=== PATIENT | male | born 1990 | race Caucasian/White ===

== ENCOUNTER 2017-01-03 09:21 | Inpatient (IN) | payer OTHER ==
[2017-01-03 10:15] VITALS: BMI 25.3
--- NOTE | 2017-01-03 13:48 | HP ---
COWS - Scale Resting Pulse: 0= [place] 80 or Below Sweatin= Chills/Flushing Restless Observation: 0= Sits Still Pupil Size: 2= Moderately Dilated Bone or Joint Aches: 4=Acute Joint/Muscle Pain Runny Nose/ Eye Tearin= Nasal Congestion GI Upset > 30mins: 1= Stomach Cramp Tremor Observation: 2= Slight Tremor Visible Yawning Observation: 1= 1-2x During Session Anxiety or Irritability: 1=Feels Anxious/Irritable Goose Flesh Skin: 0=Smooth Skin COWS Score: 13 Admission ROS S - HPI Chief Complaint: DETOX TX FOR PERCOCETS AND HEROIN DEPENDENCE Allergies/Adverse Reactions: Allergies Allergy/AdvReac Type Severity Reaction Status Date / Time No Known Allergies Allergy Verified 01/03/17 10:38 History of Present Illness: 26 Y/O H/MALE WITH A HX OF OPIOID DEPENDENCE SEEKING DETOX TX. Exam Limitations: No Limitations - Ebola screening Have you traveled outside of the country in the last 21 days: No Have you had contact with anyone from an Ebola affected area: No Have you been sick,other than usual withdrawal symptoms: No Do you have a fever: No - Review of Systems Constitutional: Chills, Loss of Appetite, Night Sweats, Changes in sleep, Unintentional Wgt. Loss EENT: reports: Blurred Vision, Tearing, Nose Congestion, Dental Problems (ROOT CANAL;GINGIVITIS HX) Respiratory: reports: No Symptoms reported Cardiac: reports: Lightheadedness GI: reports: Constipated, Diarrhea, Nausea, Poor Appetite, Vomiting, Abdominal cramping : reports: Dysuria Musculoskeletal: reports: Back Pain, Muscle Pain Integumentary: reports: No Symptoms Reported Neuro: reports: Dizziness Endocrine: reports: No Symptoms Reported Hematology: reports: No Symptoms Reported Psychiatric: reports: Orientated x3, Anxious Other Systems: Reviewed and Negative Patient History - Patient Medical History Hx Anemia: No Hx Asthma: No Hx Chronic Obstructive Pulmonary Disease (COPD): No Hx Cardiac Disorders: No Hx Hypertension: No Hx Hypercholesterolemia: No HX Cerebrovascular Accident: No Hx Seizures: No Hx Diabetes: No Hx Gastrointestinal Disorders: Yes (GASTRITIS HX-N CURRENT MED) Hx Genitourinary Disorders: No Hx Sexually Transmitted Disorders: No Hx Renal Disease (ESRD): No Hx Thyroid Disease: No Hx Human Immunodeficiency Virus (HIV): No (NEGATIVE HX) Hx Hepatitis C: No Hx Depression: No Hx Suicide Attempt: No Hx Bipolar Disorder: No Hx Schizophrenia: No - Patient Surgical History Past Surgical History: No Hx Neurologic Surgery: No Hx Cataract Extraction: No Hx Cardiac Surgery: No Hx Lung Surgery: No Hx Breast Surgery: No Hx Breast Biopsy: No Hx Abdominal Surgery: No Hx Appendectomy: No Hx Cholecystectomy: No Hx Genitourinary Surgery: No Hx Orthopedic Surgery: No Anesthesia Reaction: No - PPD History Previous Implant?: Yes Documented Results: Negative w/o proof Implanted On Prior R Admission?: No PPD to be Administered?: Yes - Reproductive History Patient is a Female of Child Bearing Age (11 -55 yrs old): No (MALE) Patient : (N/A) - Smoking Cessation Smoking history: Current every day smoker Have you smoked in the past 12 months: Yes Aproximately how many cigarettes per day: 20 Hx Chewing Tobacco Use: No Initiated information on smoking cessation: Yes 'Breaking Loose' booklet given: 01/03/17 - Substance & Tx. History Hx Alcohol Use: Yes (ON OCASSIONS) Hx Substance Use: Yes (HEROIN/PERCOCETS) Substance Use Type: Heroin, Opiates Hx Substance Use Treatment: No (FIRST TIME IN DETOX) - Substances Abused Heroin Route: Inhalation Frequency: 3-6 times per week Amount used: 2 bags Age of first use: 24 Date of Last Use: 01/02/17 Marijuana/Hashish Route: Smoking Frequency: Daily Amount used: 3.5grams Age of first use: 16 Date of Last Use: 01/02/17 percocets Route: Oral Frequency: Daily Amount used: 4-5 (10mg) Age of first use: 21 Date of Last Use: 01/02/17 Family Disease History - Family Disease History Family Disease History: Other: Mother (HTN) Admission Physical Exam BHS - Vital Signs Vital Signs: Vital Signs - 24 hr 01/03/17 10:11 Temperature 96.9 F L Pulse Rate 77 Respiratory 20 Rate Blood Pressure 112/72 - Physical General Appearance: Yes: Moderate Distress, Alcohol on Breath, Anxious HEENTM: Yes: EOMI, Normocephalic, UMER, Pharynx Normal Respiratory: Yes: Chest Non-Tender, Lungs Clear, Normal Breath Sounds, No Respiratory Distress Neck: Yes: No masses,lesions,Nodules, Supple, Trachea in good position Breast: Yes: Breast Exam Deferred Cardiology: Yes: Regular Rhythm, Regular Rate, S1, S2 Abdominal: Yes: Normal Bowel Sounds, Non Tender, Flat, Soft Genitourinary: Yes: Other (N/C) Back: Yes: Within Normal Limits Musculoskeletal: Yes: full range of Motion, Gait Steady Extremities: Yes: Normal Range of Motion, Non-Tender Neurological: Yes: recreation coordinator II-XII NML intact, Fully Oriented, Alert, Motor Strength 5/5 Integumentary: Yes: Dry, Warm, Other (BRUISE ON LEFT ANKLE) Lymphatic: Yes: Within Normal Limits - Diagnostic (1) Opioid dependence with withdrawal Current Visit: Yes Status: Acute (2) Cocaine dependence, uncomplicated Current Visit: Yes Status: Acute (3) Cannabis dependence, uncomplicated Current Visit: Yes Status: Acute Cleared for Admission [facility] - Detox or Rehab [facility] Level of Care: Medically Managed Detox Regimen/Protocol: Methadone [facility] Breath Alcohol Content Breath Alcohol Content: 0 Urine Drug Screen - Results Drug Screen Negative: No Urine Drug Screen Results: THC-Marijuana, SAMIRA-Cocaine, OPI-Opiates, OXY- Oxycodone
[2017-01-03] MEDS ORDERED: guaiFENesin/D-METHORPHAN HB 10 ML UNIT-DOSE CUPS PO PRN (14:03)
[2017-01-03] MEDS ORDERED: MAGNESIUM HYDROX 2400MG/30ML ORAL SUSPENSION 30 ML CUP PO PRN (14:03)
[2017-01-03] MEDS ORDERED: MENTHOL/PHENOL 1 EACH UD MM PRN (14:03)
[2017-01-03] MEDS ORDERED: LOPERAMIDE HCL 2 MG CAPSULE PO PRN (14:03)
[2017-01-03] MEDS ORDERED: MAG HYDROX/AL HYDROX/SIMETH 30 ML UNIT-DOSE CUP PO PRN (14:03)
[2017-01-03] MEDS ORDERED: ACETAMINOPHEN 325 MG TABLET (FP) PO PRN (14:03)
[2017-01-03] MEDS ORDERED: P-EPHED 60MG/TRIPROLIDI 2.5MG TABLET PO PRN (14:03)
[2017-01-03] MEDS ORDERED: MAGNESIUM CITRATE 300 ML BOTTLE PO PRN (14:03)
[2017-01-03] MEDS: diazePAM 5 MG TABLET PO PRN ×2 (14:29→22:49)
[2017-01-03] MEDS ORDERED: METHADONE HCL 10 MG TABLET (FOR DETOX USE ONLY) PO ONE ×2 (15:00→23:00)
[2017-01-03] MEDS: NICOTINE 21 MG/24 HOURS TOPICAL PATCH TD SCH (16:01)
[2017-01-03 16:07] LABS: MCH 32.8 pg (25.7-33.7); MCHC 34.2 g/dl (32.0-35.9); MEAN CELL VOLUME 95.9 fl (80-96); MEAN PLT VOLUME 8.9 fl (7.5-11.1); PLATELET COUNT 212 K/MM3 (134-434)
[2017-01-03 16:36] LABS: ALBUMIN 3.6 g/dl (3.4-5.0); ANION GAP 7 (8-16); BILIRUBIN,TOTAL 0.7 mg/dL (0.2-1.0); CALCIUM 8.3 mg/dL (8.5-10.1); CO2 28 mmol/L (21-32); CREATININE 0.8 mg/dL (0.7-1.3); GLUCOSE,RANDOM 78 mg/dL (74-106); SGOT/AST 11 U/L (15-37); SGPT/ALT 18 U/L (12-78); TOT PROT 6.6 g/dl (6.4-8.2)
[2017-01-03 16:37] LABS: ALK PHOS 65 U/L (45-117)
[2017-01-03 17:12] LABS: SICKLE CELL SCREEN NEGATIVE (NEGATIVE)
[2017-01-03] MEDS: THIAMINE HCL 100 MG TABLET (FP) PO SCH (22:48)
[2017-01-04 00:28] LABS: URINE APPEARANCE CLEAR; URINE BILIRUBIN NEGATIVE (NEGATIVE); URINE BLOOD NEGATIVE (NEGATIVE); URINE COLOR YELLOW; URINE GLUCOSE (UA) NEGATIVE (NEGATIVE); URINE KETONE NEGATIVE (NEGATIVE); URINE LEUK ESTERASE TRACE (NEGATIVE); URINE NITRITE NEGATIVE (NEGATIVE); URINE PROTEIN NEGATIVE (NEGATIVE); URINE UROBILINOGEN NEGATIVE mg/dL (0.2-1.0)
[2017-01-04 00:58] LABS: URINE HYALINE CAST 1 /lpf; URINE MUCUS RARE; URINE RBC 1 /hpf (0-3); URINE WBC 2 /hpf (3-5)
[2017-01-04 02:02] LABS: HIV 1 & 2 AB NEGATIVE; HIV 1 AGp24 NEGATIVE
[2017-01-04] MEDS: diazePAM 5 MG TABLET PO PRN ×5 (05:30→22:45)
--- NOTE | 2017-01-04 09:25 | EKG ---
Test Reason : Blood Pressure : / mmHG Vent. Rate : 062 BPM Atrial Rate : 062 BPM P-R Int : 124 ms QRS Dur : 082 ms QT Int : 438 ms P-R-T Axes : 047 044 052 degrees QTc Int : 444 ms NORMAL SINUS RHYTHM WITH SINUS ARRHYTHMIA NORMAL ECG NO PREVIOUS ECGS AVAILABLE Confirmed by ZEINA JUARES MD ([id number]) on 01/04/2017 9:24:28 AM Referred By: Ziyad Perdomo Confirmed By:ZEINA JUARES MD
[2017-01-04] MEDS ORDERED: METHADONE HCL 10 MG TABLET (FOR DETOX USE ONLY) PO ONE (10:00)
[2017-01-04] MEDS: PRENATAL VITAMINS W/ FOLIC ACID TABLET (FP) PO SCH (10:29)
[2017-01-04] MEDS: NICOTINE 21 MG/24 HOURS TOPICAL PATCH TD SCH (10:30)
--- NOTE | 2017-01-04 12:02 | PN ---
S COWS - Scale Resting Pulse: 0= [place] 80 or Below Sweatin= Chills/Flushing Restless Observation: 3= Extraneous Movement Pupil Size: 2= Moderately Dilated Bone or Joint Aches: 4=Acute Joint/Muscle Pain Runny Nose/ Eye Tearin= Nasal Congestion GI Upset > 30mins: 1= Stomach Cramp Tremor Observation of Outstretched Hands: 1= Tremor Atco, Not Seen Yawning Observation: 1= 1-2x During Session Anxiety or Irritability: 2=Irritable/Anxious Goose Flesh Skin: 0=Smooth Skin COWS Score: 16 S Progress Note (SOAP) Subjective: ANXIETY,SWEATS, CHILLS, FATIGUE. Objective: 01/04/17 12:01 Vital Signs Temperature 97.2 F L 01/04/17 10:06 Pulse Rate 66 01/04/17 10:06 Respiratory Rate 18 01/04/17 10:06 Blood Pressure 109/69 01/04/17 10:06 O2 Sat by Pulse Oximetry (%) Laboratory Last Values WBC 9.0 K/mm3 (4.0-10.0) 01/03/17 13:00 RBC 4.51 M/mm3 (4.00-5.60) 01/03/17 13:00 Hgb 14.8 GM/dL (11.7-16.9) 01/03/17 13:00 Hct 43.2 % (35.4-49) 01/03/17 13:00 MCV 95.9 fl (80-96) 01/03/17 13:00 MCH 32.8 pg (25.7-33.7) 01/03/17 13:00 MCHC 34.2 g/dl (32.0-35.9) 01/03/17 13:00 RDW 14.0 % (11.9-15.9) 01/03/17 13:00 Plt Count 212 K/MM3 (134-434) 01/03/17 13:00 MPV 8.9 fl (7.5-11.1) 01/03/17 13:00 Sickle Cell Screen Negative (NEGATIVE) 01/03/17 13:00 Sodium 139 mmol/L (136-145) 01/03/17 13:00 Potassium 4.1 mmol/L (3.5-5.1) 01/03/17 13:00 Chloride 104 mmol/L (98-107) 01/03/17 13:00 Carbon Dioxide 28 mmol/L (21-32) 01/03/17 13:00 Anion Gap 7 (8-16) L 01/03/17 13:00 BUN 13 mg/dL (7-18) 01/03/17 13:00 Creatinine 0.8 mg/dL (0.7-1.3) 01/03/17 13:00 Creat Clearance w eGFR > 60 (>60) 01/03/17 13:00 Random Glucose 78 mg/dL (74-106) 01/03/17 13:00 Calcium 8.3 mg/dL (8.5-10.1) L 01/03/17 13:00 Total Bilirubin 0.7 mg/dL (0.2-1.0) 01/03/17 13:00 AST 11 U/L (15-37) L 01/03/17 13:00 ALT 18 U/L (12-78) 01/03/17 13:00 Alkaline Phosphatase 65 U/L (45-117) 01/03/17 13:00 Total Protein 6.6 g/dl (6.4-8.2) 01/03/17 13:00 Albumin 3.6 g/dl (3.4-5.0) 01/03/17 13:00 Urine Color Yellow 01/03/17 14:56 Urine Appearance Clear 01/03/17 14:56 Urine pH 6.0 (5.0-8.0) 01/03/17 14:56 Ur Specific [place] 1.025 (1.005-1.025) 01/03/17 14:56 Urine Protein Negative (NEGATIVE) 01/03/17 14:56 Urine Glucose (UA) Negative (NEGATIVE) 01/03/17 14:56 Urine Ketones Negative (NEGATIVE) 01/03/17 14:56 Urine Blood Negative (NEGATIVE) 01/03/17 14:56 Urine Nitrite Negative (NEGATIVE) 01/03/17 14:56 Urine Bilirubin Negative (NEGATIVE) 01/03/17 14:56 Urine Urobilinogen Negative mg/dL (0.2-1.0) 01/03/17 14:56 Ur Leukocyte Esterase Trace (NEGATIVE) 01/03/17 14:56 Urine RBC 1 /hpf (0-3) 01/03/17 14:56 Urine WBC 2 /hpf (3-5) 01/03/17 14:56 Ur Epithelial Cells Rare /hpf (FEW) 01/03/17 14:56 Hyaline Casts 1 /lpf 01/03/17 14:56 Urine Mucus Rare 01/03/17 14:56 RPR Titer Nonreactive (NONREACTIVE) 01/03/17 13:00 HIV 1&2 Antibody Screen Negative 01/03/17 11:00 HIV P24 Antigen Negative 01/03/17 11:00 LABS NOTED Assessment: 01/04/17 12:01 WITHDRAWAL SX Plan: CONTINUE DETOX INCREASE PO FLUIDS
[2017-01-04 14:33] LABS: URINE APPEARANCE CLEAR; URINE BILIRUBIN NEGATIVE (NEGATIVE); URINE BLOOD TRACE-INTA (NEGATIVE); URINE COLOR LT. YELLOW; URINE GLUCOSE (UA) NEGATIVE (NEGATIVE); URINE KETONE NEGATIVE (NEGATIVE); URINE LEUK ESTERASE NEGATIVE (NEGATIVE); URINE NITRITE NEGATIVE (NEGATIVE); URINE PROTEIN NEGATIVE (NEGATIVE); URINE UROBILINOGEN 0.2 mg/dL (0.2-1.0)
[2017-01-04] MEDS: NICOTINE POLACRILEX 4 MG GUM BC PRN (16:45)
[2017-01-04] MEDS: THIAMINE HCL 100 MG TABLET (FP) PO SCH (22:45)
[2017-01-04] MEDS: diphenhydrAMINE HCL 50 MG CAPSULE PO PRN (22:45)
[2017-01-05] MEDS: diazePAM 5 MG TABLET PO PRN ×5 (03:28→19:45)
[2017-01-05] MEDS ORDERED: METHADONE HCL 5 MG TABLET (FOR DETOX USE ONLY) PO ONE (10:00)
[2017-01-05] MEDS: PRENATAL VITAMINS W/ FOLIC ACID TABLET (FP) PO SCH (10:19)
[2017-01-05] MEDS: NICOTINE 21 MG/24 HOURS TOPICAL PATCH TD SCH (10:20)
--- NOTE | 2017-01-05 21:02 | PN ---
S CIWA - CIWA Score Nausea/Vomitin Muscle Tremors: 4-Moderate,w/Arms Extend Anxiety: 3 Agitation: 0-Normal Activity Paroxysmal Sweats: 3 Orientation: 2-Disoriented Date<2 days Tacttile Disturbances: 0-None Auditory Disturbances: 0-None Visual Disturbances: 3-Moderate Sensitivity Headache: 0-None Present CIWA-Ar Total Score: 18 BHS Progress Note (SOAP) Subjective: Nausea, Tremors, Sweating, Constipation, Interrupted Sleep, Body Aches. Objective: PT. A & O X 2 (DISORIENTED ABOUT DAY / DATE). PT. OBSERVED AMBULATING ON UNIT. NO ACUTE DISTRESS. 01/05/17 20:59 Vital Signs Temperature 97.7 F 01/05/17 17:53 Pulse Rate 91 H 01/05/17 17:53 Respiratory Rate 18 01/05/17 17:53 Blood Pressure 108/66 01/05/17 17:53 O2 Sat by Pulse Oximetry (%) Laboratory Tests 01/03/17 01/03/17 01/03/17 11:00 13:00 13:00 WBC 9.0 RBC 4.51 Hgb 14.8 Hct 43.2 MCV 95.9 MCH 32.8 MCHC 34.2 RDW 14.0 Plt Count 212 MPV 8.9 Sickle Cell Screen Negative Sodium 139 Potassium 4.1 Chloride 104 Carbon Dioxide 28 Anion Gap 7 L BUN 13 Creatinine 0.8 Creat Clearance w eGFR > 60 Random Glucose 78 Calcium 8.3 L Total Bilirubin 0.7 AST 11 L ALT 18 Alkaline Phosphatase 65 Total Protein 6.6 Albumin 3.6 Urine Color Urine Appearance Urine pH Ur Specific [place] Urine Protein Urine Glucose (UA) Urine Ketones Urine Blood Urine Nitrite Urine Bilirubin Urine Urobilinogen Ur Leukocyte Esterase Urine RBC Urine WBC Ur Epithelial Cells Hyaline Casts Urine Mucus RPR Titer HIV 1&2 Antibody Screen Negative HIV P24 Antigen Negative 01/03/17 01/03/17 01/04/17 13:00 14:56 13:25 WBC RBC Hgb Hct MCV MCH MCHC RDW Plt Count MPV Sickle Cell Screen Sodium Potassium Chloride Carbon Dioxide Anion Gap BUN Creatinine Creat Clearance w eGFR Random Glucose Calcium Total Bilirubin AST ALT Alkaline Phosphatase Total Protein Albumin Urine Color Yellow Lt. yellow Urine Appearance Clear Clear Urine pH 6.0 6.0 Ur Specific [place] 1.025 1.020 Urine Protein Negative Negative Urine Glucose (UA) Negative Negative Urine Ketones Negative Negative Urine Blood Negative Trace-inta Urine Nitrite Negative Negative Urine Bilirubin Negative Negative Urine Urobilinogen Negative 0.2 Ur Leukocyte Esterase Trace Negative Urine RBC 1 Urine WBC 2 Ur Epithelial Cells Rare Hyaline Casts 1 Urine Mucus Rare RPR Titer Nonreactive HIV 1&2 Antibody Screen HIV P24 Antigen LABS NOTED. Assessment: 01/05/17 21:00 WITHDRAWAL SYMPTOMS. Plan: CONTINUE DETOX.
[2017-01-05] MEDS: diphenhydrAMINE HCL 50 MG CAPSULE PO PRN (22:41)
[2017-01-05] MEDS: THIAMINE HCL 100 MG TABLET (FP) PO SCH (22:41)
[2017-01-05] MEDS: IBUPROFEN 400 MG TABLET (FP) PO PRN (22:43)
[2017-01-05] MEDS: CYCLOBENZAPRINE HCL 10 MG TABLET (FP) PO PRN (23:02)
[2017-01-06] MEDS: diazePAM 5 MG TABLET PO PRN ×3 (00:08→10:32)
[2017-01-06] MEDS: CYCLOBENZAPRINE HCL 10 MG TABLET (FP) PO PRN ×3 (06:01→22:13)
[2017-01-06] MEDS ORDERED: METHADONE HCL 5 MG TABLET (FOR DETOX USE ONLY) PO ONE (10:00)
[2017-01-06] MEDS: PRENATAL VITAMINS W/ FOLIC ACID TABLET (FP) PO SCH (10:30)
[2017-01-06] MEDS: NICOTINE 21 MG/24 HOURS TOPICAL PATCH TD SCH (10:31)
--- NOTE | 2017-01-06 16:51 | PN ---
BHS Progress Note (SOAP) Subjective: Interrupted sleep, Fatigue, Body Aches. Objective: PT. A & O X 3, OBSERVED AMBULATING ON UNIT. NO ACUTE DISTRESS. 01/06/17 16:50 Vital Signs Temperature 97.7 F 01/06/17 14:54 Pulse Rate 80 01/06/17 14:54 Respiratory Rate 20 01/06/17 14:54 Blood Pressure 94/64 01/06/17 14:54 O2 Sat by Pulse Oximetry (%) Laboratory Tests 01/03/17 01/03/17 01/03/17 11:00 13:00 13:00 WBC 9.0 RBC 4.51 Hgb 14.8 Hct 43.2 MCV 95.9 MCH 32.8 MCHC 34.2 RDW 14.0 Plt Count 212 MPV 8.9 Sickle Cell Screen Negative Sodium 139 Potassium 4.1 Chloride 104 Carbon Dioxide 28 Anion Gap 7 L BUN 13 Creatinine 0.8 Creat Clearance w eGFR > 60 Random Glucose 78 Calcium 8.3 L Total Bilirubin 0.7 AST 11 L ALT 18 Alkaline Phosphatase 65 Total Protein 6.6 Albumin 3.6 Urine Color Urine Appearance Urine pH Ur Specific [place] Urine Protein Urine Glucose (UA) Urine Ketones Urine Blood Urine Nitrite Urine Bilirubin Urine Urobilinogen Ur Leukocyte Esterase Urine RBC Urine WBC Ur Epithelial Cells Hyaline Casts Urine Mucus RPR Titer HIV 1&2 Antibody Screen Negative HIV P24 Antigen Negative 01/03/17 01/03/17 01/04/17 13:00 14:56 13:25 WBC RBC Hgb Hct MCV MCH MCHC RDW Plt Count MPV Sickle Cell Screen Sodium Potassium Chloride Carbon Dioxide Anion Gap BUN Creatinine Creat Clearance w eGFR Random Glucose Calcium Total Bilirubin AST ALT Alkaline Phosphatase Total Protein Albumin Urine Color Yellow Lt. yellow Urine Appearance Clear Clear Urine pH 6.0 6.0 Ur Specific [place] 1.025 1.020 Urine Protein Negative Negative Urine Glucose (UA) Negative Negative Urine Ketones Negative Negative Urine Blood Negative Trace-inta Urine Nitrite Negative Negative Urine Bilirubin Negative Negative Urine Urobilinogen Negative 0.2 Ur Leukocyte Esterase Trace Negative Urine RBC 1 Urine WBC 2 Ur Epithelial Cells Rare Hyaline Casts 1 Urine Mucus Rare RPR Titer Nonreactive HIV 1&2 Antibody Screen HIV P24 Antigen labs noted. Assessment: 01/06/17 16:50 WITHDRAWAL SYMPTOMS. Plan: CONTINUE DETOX. INCREASE PO FLUID INTAKE.
[2017-01-06] MEDS: THIAMINE HCL 100 MG TABLET (FP) PO SCH (22:13)
[2017-01-06] MEDS: diphenhydrAMINE HCL 50 MG CAPSULE PO PRN (22:13)
[2017-01-07] MEDS: hydrOXYzine PAMOATE 50 MG CAPSULE (FP) PO PRN ×4 (00:46→22:32)
[2017-01-07] MEDS: CYCLOBENZAPRINE HCL 10 MG TABLET (FP) PO PRN ×3 (05:54→22:33)
[2017-01-07] MEDS ORDERED: METHADONE HCL 10 MG TABLET (FOR DETOX USE ONLY) PO ONE (10:00)
[2017-01-07] MEDS: NICOTINE 21 MG/24 HOURS TOPICAL PATCH TD SCH (10:18)
[2017-01-07] MEDS: PRENATAL VITAMINS W/ FOLIC ACID TABLET (FP) PO SCH (10:18)
[2017-01-07] MEDS: IBUPROFEN 400 MG TABLET (FP) PO PRN (17:03)
--- NOTE | 2017-01-07 17:26 | PN ---
BHS Progress Note (SOAP) Subjective: Interrupted sleep, Fatigue, Body Aches. Objective: PT. A & O X 3, OBSERVED AMBULATING ON UNIT. NO ACUTE DISTRESS. 01/07/17 17:25 Vital Signs Temperature 97.6 F 01/07/17 09:04 Pulse Rate 70 01/07/17 13:20 Respiratory Rate 18 01/07/17 13:20 Blood Pressure 114/77 01/07/17 13:20 O2 Sat by Pulse Oximetry (%) Laboratory Tests 01/03/17 01/03/17 01/03/17 11:00 13:00 13:00 WBC 9.0 RBC 4.51 Hgb 14.8 Hct 43.2 MCV 95.9 MCH 32.8 MCHC 34.2 RDW 14.0 Plt Count 212 MPV 8.9 Sickle Cell Screen Negative Sodium 139 Potassium 4.1 Chloride 104 Carbon Dioxide 28 Anion Gap 7 L BUN 13 Creatinine 0.8 Creat Clearance w eGFR > 60 Random Glucose 78 Calcium 8.3 L Total Bilirubin 0.7 AST 11 L ALT 18 Alkaline Phosphatase 65 Total Protein 6.6 Albumin 3.6 Urine Color Urine Appearance Urine pH Ur Specific [place] Urine Protein Urine Glucose (UA) Urine Ketones Urine Blood Urine Nitrite Urine Bilirubin Urine Urobilinogen Ur Leukocyte Esterase Urine RBC Urine WBC Ur Epithelial Cells Hyaline Casts Urine Mucus RPR Titer HIV 1&2 Antibody Screen Negative HIV P24 Antigen Negative 01/03/17 01/03/17 01/04/17 13:00 14:56 13:25 WBC RBC Hgb Hct MCV MCH MCHC RDW Plt Count MPV Sickle Cell Screen Sodium Potassium Chloride Carbon Dioxide Anion Gap BUN Creatinine Creat Clearance w eGFR Random Glucose Calcium Total Bilirubin AST ALT Alkaline Phosphatase Total Protein Albumin Urine Color Yellow Lt. yellow Urine Appearance Clear Clear Urine pH 6.0 6.0 Ur Specific [place] 1.025 1.020 Urine Protein Negative Negative Urine Glucose (UA) Negative Negative Urine Ketones Negative Negative Urine Blood Negative Trace-inta Urine Nitrite Negative Negative Urine Bilirubin Negative Negative Urine Urobilinogen Negative 0.2 Ur Leukocyte Esterase Trace Negative Urine RBC 1 Urine WBC 2 Ur Epithelial Cells Rare Hyaline Casts 1 Urine Mucus Rare RPR Titer Nonreactive HIV 1&2 Antibody Screen HIV P24 Antigen LABS NOTED. Assessment: 01/07/17 17:25 WITHDRAWAL SYMPTOMS. Plan: CONTINUE DETOX. INCREASE PO FLUID INTAKE.
[2017-01-07] MEDS: NICOTINE POLACRILEX 4 MG GUM BC PRN (17:57)
[2017-01-07] MEDS: THIAMINE HCL 100 MG TABLET (FP) PO SCH (22:32)
[2017-01-08] MEDS: CYCLOBENZAPRINE HCL 10 MG TABLET (FP) PO PRN (05:28)
[2017-01-08] MEDS: hydrOXYzine PAMOATE 50 MG CAPSULE (FP) PO PRN (05:30)
[2017-01-08] MEDS ORDERED: METHADONE HCL 5 MG TABLET (FOR DETOX USE ONLY) PO ONE (06:00)
[2017-01-08 06:39] VITALS: BP 101/68; PULSE 71; TEMP 97.3
--- NOTE | 2017-01-08 11:05 | DS ---
[facility] Detox Discharge Summary Admission Date: 01/03/17 Discharge Date: 01/08/17 - History Present History: Cannabis Dependence, Cocaine Dependence, Opioid Dependence Additional Comments: PATIENT GOING TO [facility] ([place] [facility] FOR AFTERCARE. PATIENT WAS DISCHARGED FROM DETOX UNIT IN STABLE MEDICAL CONDITION. Pertinent Past History: History of Gastritis. - Physical Exam Results Vital Signs: Vital Signs Temperature 97.3 F L 01/08/17 06:38 Pulse Rate 71 01/08/17 06:38 Respiratory Rate 16 01/08/17 06:38 Blood Pressure 101/68 01/08/17 06:38 O2 Sat by Pulse Oximetry (%) Pertinent Admission Physical Exam Findings: WITHDRAWAL SYMPTOMS. Laboratory Tests 01/03/17 01/03/17 01/03/17 11:00 13:00 13:00 WBC 9.0 RBC 4.51 Hgb 14.8 Hct 43.2 MCV 95.9 MCH 32.8 MCHC 34.2 RDW 14.0 Plt Count 212 MPV 8.9 Sickle Cell Screen Negative Sodium 139 Potassium 4.1 Chloride 104 Carbon Dioxide 28 Anion Gap 7 L BUN 13 Creatinine 0.8 Creat Clearance w eGFR > 60 Random Glucose 78 Calcium 8.3 L Total Bilirubin 0.7 AST 11 L ALT 18 Alkaline Phosphatase 65 Total Protein 6.6 Albumin 3.6 Urine Color Urine Appearance Urine pH Ur Specific [place] Urine Protein Urine Glucose (UA) Urine Ketones Urine Blood Urine Nitrite Urine Bilirubin Urine Urobilinogen Ur Leukocyte Esterase Urine RBC Urine WBC Ur Epithelial Cells Hyaline Casts Urine Mucus RPR Titer HIV 1&2 Antibody Screen Negative HIV P24 Antigen Negative 01/03/17 01/03/17 01/04/17 13:00 14:56 13:25 WBC RBC Hgb Hct MCV MCH MCHC RDW Plt Count MPV Sickle Cell Screen Sodium Potassium Chloride Carbon Dioxide Anion Gap BUN Creatinine Creat Clearance w eGFR Random Glucose Calcium Total Bilirubin AST ALT Alkaline Phosphatase Total Protein Albumin Urine Color Yellow Lt. yellow Urine Appearance Clear Clear Urine pH 6.0 6.0 Ur Specific [place] 1.025 1.020 Urine Protein Negative Negative Urine Glucose (UA) Negative Negative Urine Ketones Negative Negative Urine Blood Negative Trace-inta Urine Nitrite Negative Negative Urine Bilirubin Negative Negative Urine Urobilinogen Negative 0.2 Ur Leukocyte Esterase Trace Negative Urine RBC 1 Urine WBC 2 Ur Epithelial Cells Rare Hyaline Casts 1 Urine Mucus Rare RPR Titer Nonreactive HIV 1&2 Antibody Screen HIV P24 Antigen LABS NOTED. - Treatment Hospital Course: Detox Protocol Followed, Detoxed Safely, Responded well, Discharged Condition Good, Rehab Referral Accepted Patient has Accepted a Rehab Referral to: [facility] ([place], [place] - Medication Discharge Medications: Ambulatory Orders NK [No Known Home Medication] 01/03/17 - Diagnosis (1) Cannabis dependence, uncomplicated Current Visit: Yes Status: Acute (2) Cocaine dependence, uncomplicated Current Visit: Yes Status: Acute (3) Opioid dependence with withdrawal Current Visit: Yes Status: Acute - AMA Did Patient Leave Against Medical Advice: No
== END 2017-01-08 08:55 | disposition home or self-care (01) | DRG 897 ==
LOC: YASAS 09:21 → Y3N 11:46
PROVIDERS: ADMIT Internal Medicine Addiction Medicine; ATTEND Internal Medicine Addiction Medicine
PROC: HZ2ZZZZ Detoxification Services for Substance Abuse Treatment (ICD-10-PCS; principal; 2017-01-03)
DX: F11.23 Opioid dependence with withdrawal (principal); F14.20 Cocaine dependence, uncomplicated; F12.20 Cannabis dependence, uncomplicated; F17.210 Nicotine dependence, cigarettes, uncomplicated
CPT/HCPCS: 36415; 80053; 81003; 81015; 85027; 85660; 86593; 87389; 93005; 93010

== ENCOUNTER 2017-05-01 15:03 | Inpatient (IN) | payer OTHER ==
[2017-05-01 15:33] VITALS: BMI 24.1
--- NOTE | 2017-05-01 17:54 | HP ---
COWS - Scale Resting Pulse: 2= NM 101-120 Sweatin= Chills/Flushing Restless Observation: 3= Extraneous Movement Pupil Size: 0= Normal to Room Light Bone or Joint Aches: 1= Mild Discomfort Runny Nose/ Eye Tearin= Nasal Congestion GI Upset > 30mins: 3= Vomiting/Diarrhea Tremor Observation: 2= Slight Tremor Visible Yawning Observation: 0= None Anxiety or Irritability: 2=Irritable/Anxious Goose Flesh Skin: 0=Smooth Skin COWS Score: 15 Admission ROS S - [facility] Chief Complaint: WITHDRAWAL SX Allergies/Adverse Reactions: Allergies Allergy/AdvReac Type Severity Reaction Status Date / Time No Known Allergies Allergy Verified 01/03/17 10:38 History of Present Illness: 26 YEARS OLD MALE WITH LONG HISTORY OF HEROIN NICOTINE DEPENDENCE HAS DEPRESSION IS ADMITTED TO DETOX Exam Limitations: No Limitations - Ebola screening Have you traveled outside of the country in the last 21 days: No (N) Have you had contact with anyone from an Ebola affected area: No Have you been sick,other than usual withdrawal symptoms: No Do you have a fever: No - Review of Systems Constitutional: Loss of Appetite, Changes in sleep, Unintentional Wgt. Loss, Unexplained wgt Loss EENT: reports: No Symptoms Reported Respiratory: reports: No Symptoms reported Cardiac: reports: No Symptoms Reported GI: reports: Nausea, Poor Appetite, Poor Fluid Intake, Vomiting, Indigestion, Abdominal cramping : reports: No Symptoms Reported Musculoskeletal: reports: Back Pain Integumentary: reports: No Symptoms Reported Neuro: reports: Tremors Endocrine: reports: No Symptoms Reported Hematology: reports: No Symptoms Reported Psychiatric: reports: Judgement Intact, Orientated x3, Depressed Other Systems: Reviewed and Negative Patient History - Patient Medical History Hx Anemia: No Hx Asthma: No Hx Chronic Obstructive Pulmonary Disease (COPD): No Hx Cancer: No Hx Cardiac Disorders: No Hx Congestive Heart Failure: No Hx Hypertension: No Hx Hypercholesterolemia: No Hx Pacemaker: No HX Cerebrovascular Accident: No Hx Seizures: No Hx Dementia: No Hx Diabetes: No Hx Gastrointestinal Disorders: Yes (GASTRITIS HX-N CURRENT MED) Hx Liver Disease: No Hx Genitourinary Disorders: No Hx Sexually Transmitted Disorders: No Hx Renal Disease (ESRD): No Hx Thyroid Disease: No Hx Human Immunodeficiency Virus (HIV): No (NEGATIVE HX) Hx Hepatitis C: No Hx Depression: Yes Hx Suicide Attempt: No Hx Bipolar Disorder: No Hx Schizophrenia: No - Patient Surgical History Past Surgical History: No Hx Neurologic Surgery: No Hx Cataract Extraction: No Hx Cardiac Surgery: No Hx Lung Surgery: No Hx Breast Surgery: No Hx Breast Biopsy: No Hx Abdominal Surgery: No Hx Appendectomy: No Hx Cholecystectomy: No Hx Genitourinary Surgery: No Hx Orthopedic Surgery: No - PPD History Previous Implant?: Yes Documented Results: Negative w/proof Implanted On Prior [facility] Admission?: Yes Date: 01/05/17 PPD to be Administered?: No - Smoking Cessation Smoking history: Current every day smoker Have you smoked in the past 12 months: Yes Aproximately how many cigarettes per day: 15 Cigars Per Day: 0 Hx Chewing Tobacco Use: No Initiated information on smoking cessation: Yes 'Breaking Loose' booklet given: 05/01/17 - Substance & Tx. History Hx Alcohol Use: No Hx Substance Use: Yes Substance Use Type: Cocaine, Marijuana, Opiates Hx Substance Use Treatment: Yes (01/2017 [facility] - Substances Abused Heroin Route: Inhalation Frequency: Daily Amount used: 20 BAGS Age of first use: 23 Date of Last Use: 04/30/17 Cocaine Route: Smoking Frequency: 1-2 times per week Amount used: G Age of first use: 17 Date of Last Use: 04/28/17 Marijuana/Hashish Route: Smoking Frequency: Daily Amount used: 8OZ Age of first use: 15 Date of Last Use: 04/30/17 Family Disease History - Family Disease History Family Disease History: Heart Disease: Mother, Other: Brother, Sister (NO SISTER ) Admission Physical Exam [facility] - Vital Signs Vital Signs: Vital Signs - 24 hr 05/01/17 15:32 Temperature 98.3 F Pulse Rate 102 H Respiratory 18 Rate Blood Pressure 124/83 - Physical General Appearance: Yes: Appropriately Dressed, Mild Distress, Thin, Tremorous, Irritable, Sweating, Anxious HEENTM: Yes: Hearing grossly Normal, Normal ENT Inspection, Normocephalic, Normal Voice Respiratory: Yes: Chest Non-Tender, Lungs Clear, Normal Breath Sounds, No Respiratory Distress, No Accessory Muscle Use Neck: Yes: Supple, Trachea in good position Breast: Yes: Breasts Symetrical Cardiology: Yes: Regular Rhythm, S1, S2, Tachycardia Abdominal: Yes: Non Tender, Soft, Increased Bowel Sounds Genitourinary: Yes: Within Normal Limits Back: Yes: Normal Inspection Musculoskeletal: Yes: full range of Motion, Gait Steady, Back pain, Muscle Pain Extremities: Yes: Normal Range of Motion, Non-Tender, Tremors Neurological: Yes: Fully Oriented, Alert, Motor Strength 5/5, Normal Response, Depressed Affect Integumentary: Yes: Warm Lymphatic: Yes: Within Normal Limits - Diagnostic (1) GERD (gastroesophageal reflux disease) Current Visit: Yes Status: Chronic Qualifiers: Esophagitis presence: without esophagitis Qualified Code(s): K21.9 - Gastro -esophageal reflux disease without esophagitis (2) Weight loss Current Visit: Yes Status: Acute (3) Depression (emotion) Current Visit: Yes Status: Suspected Qualifiers: Depression Type: dysthymia Qualified Code(s): F34.1 - Dysthymic disorder (4) Nicotine dependence Current Visit: Yes Status: Acute Qualifiers: Nicotine product type: cigarettes Substance use status: in withdrawal Qualified Code(s): F17.213 - Nicotine dependence, cigarettes, with withdrawal (5) Opioid dependence with withdrawal Current Visit: Yes Status: Acute Cleared for Admission [facility] - Detox or Rehab [facility] Level of Care: Medically Managed Detox Regimen/Protocol: Methadone [facility] Breath Alcohol Content Breath Alcohol Content: 0 Urine Drug Screen - Results Drug Screen Negative: No Urine Drug Screen Results: THC-Marijuana, SAMIRA-Cocaine, OPI-Opiates
[2017-05-01] MEDS ORDERED: MAG HYDROX/AL HYDROX/SIMETH 30 ML UNIT-DOSE CUP PO PRN (18:01)
[2017-05-01] MEDS ORDERED: MENTHOL/PHENOL 1 EACH UD MM PRN (18:01)
[2017-05-01] MEDS ORDERED: P-EPHED 60MG/TRIPROLIDI 2.5MG TABLET PO PRN (18:01)
[2017-05-01] MEDS ORDERED: IBUPROFEN 400 MG TABLET (FP) PO PRN (18:01)
[2017-05-01] MEDS ORDERED: guaiFENesin/D-METHORPHAN HB 10 ML UNIT-DOSE CUPS PO PRN (18:01)
[2017-05-01] MEDS ORDERED: MAGNESIUM HYDROX 2400MG/30ML ORAL SUSPENSION 30 ML CUP PO PRN (18:01)
[2017-05-01] MEDS ORDERED: NICOTINE POLACRILEX 4 MG GUM BUC PRN (18:01)
[2017-05-01] MEDS ORDERED: LOPERAMIDE HCL 2 MG CAPSULE PO PRN (18:01)
[2017-05-01] MEDS ORDERED: MAGNESIUM CITRATE 300 ML BOTTLE PO PRN (18:01)
[2017-05-01] MEDS ORDERED: METHADONE HCL 10 MG TABLET (FOR DETOX USE ONLY) PO ONE ×2 (19:00→23:00)
[2017-05-01] MEDS: ONDANSETRON *ODT* 4 MG TABLET SL ONE (20:14)
[2017-05-01] MEDS: diazePAM 5 MG TABLET PO PRN (20:15)
[2017-05-01 22:06] LABS: URINE APPEARANCE SLCLOUDY; URINE BILIRUBIN NEGATIVE (NEGATIVE); URINE BLOOD 1+ (NEGATIVE); URINE COLOR AMBER; URINE GLUCOSE (UA) NEGATIVE (NEGATIVE); URINE KETONE 2+ (NEGATIVE); URINE LEUK ESTERASE NEGATIVE (NEGATIVE); URINE NITRITE NEGATIVE (NEGATIVE); URINE UROBILINOGEN NEGATIVE mg/dL (0.2-1.0)
[2017-05-01] MEDS: THIAMINE HCL 100 MG TABLET (FP) PO SCH (22:23)
[2017-05-01] MEDS: RANITIDINE HCL 150 MG TABLET (FP) PO SCH (22:24)
[2017-05-01] MEDS: ACETAMINOPHEN 325 MG TABLET (FP) PO PRN (22:24)
[2017-05-01 22:48] LABS: URINE PROTEIN 2+ (NEGATIVE)
[2017-05-01 23:11] LABS: EPI CELLS FEW /HPF (FEW)
[2017-05-01 23:12] LABS: URINE MUCUS MANY
[2017-05-02 09:56] LABS: HEMATOCRIT 44.8 % (35.4-49); MCH 31.2 pg (25.7-33.7); MCHC 33.4 g/dl (32.0-35.9); MEAN CELL VOLUME 93.3 fl (80-96); MEAN PLT VOLUME 7.9 fl (7.5-11.1); PLATELET COUNT 284 K/MM3 (134-434); WHITE BLOOD COUNT 12.8 K/mm3 (4.0-10.0)
[2017-05-02] MEDS ORDERED: METHADONE HCL 10 MG TABLET (FOR DETOX USE ONLY) PO ONE (10:00)
[2017-05-02 10:06] LABS: CHLORIDE 99 mmol/L (98-107); POTASSIUM 3.6 mmol/L (3.5-5.1); SODIUM 135 mmol/L (136-145)
[2017-05-02] MEDS: RANITIDINE HCL 150 MG TABLET (FP) PO SCH ×2 (10:08→22:16)
[2017-05-02] MEDS: NICOTINE 21 MG/24 HOURS TOPICAL PATCH TD SCH (10:08)
[2017-05-02] MEDS: diazePAM 5 MG TABLET PO PRN ×3 (10:08→22:15)
[2017-05-02] MEDS: PRENATAL VITAMINS W/ FOLIC ACID TABLET (FP) PO SCH (10:08)
--- NOTE | 2017-05-02 10:11 | CONSULT ---
[facility] Psychiatric Consult - Data Date of interview: 05/02/17 Admission source: [facility] Identifying data: Pt. is a 26 year old male, single without kids, and lives with family. This is one of multiple admissions to [facility]. Pt. admitted to for heroin, cocaine, marijuana and xanax dependence. Substance Abuse History: Smoking Cessation. Smoking history: Current every day smoker. Have you smoked in the past 12 months: Yes. Aproximately how many cigarettes per day: 15. Following information confirmed by Mr. Zamarripa: - Substance & Tx. History. Hx Alcohol Use: No. Hx Substance Use: Yes. Substance Use Type: Cocaine, Marijuana, Opiates. Hx Substance Use Treatment: Yes (01/2017 [facility]). Heroin- Route: Inhalation Frequency: Daily. Amount used: 20 BAGS Age of first use: 23. Date of Last Use: 04/30/17. Cocaine- Route: Smoking Frequency: 1-2 times per week. Amount used: G Age of first use: 17. Date of Last Use: 04/28/17. Marijuana/Hashish. Route: Smoking. Frequency: Daily. Amount used: 8OZ. Age of first use: 15. Date of Last Use: 04/30/17. Xanax: uses "couple times per month." Medical History: Gastritis. Psychiatric History: Pt. denies. Pt. also denies h/o suicide attempt. Physical/Sexual Abuse/Trauma History: Denies. Additional Comment: Pt. stated he is here because of his second DWI. States he is planning on completeing 6 months of rehab before he has to present himself in court. Mental Status Exam - Mental Status Exam Alert and Oriented to: Time, Place, Person Cognitive Function: Good Patient Appearance: Well Groomed Mood: Sad Affect: Mood Congruent Patient Behavior: Crying (Pt. tearful about his current DWI situtation.), Cooperative Speech Pattern: Appropriate Voice Loudness: Moderately Soft/Quiet Thought Process: Goal Oriented Thought Disorder: Not Present Hallucinations: Denies Suicidal Ideation: Denies Homicidal Ideation: Denies Insight/Judgement: Poor Sleep: Well Muscle strength/Tone: Normal Gait/Station: Normal Psychiatric Findings - Problem List (Annabella 1, 2,3) (1) Opioid dependence with withdrawal Current Visit: Yes Status: Acute (2) Cocaine dependence, uncomplicated Current Visit: Yes Status: Acute (3) Sedative hypnotic or anxiolytic dependence Current Visit: Yes Status: Acute (4) Cannabis dependence, uncomplicated Current Visit: Yes Status: Acute (5) Nicotine dependence Current Visit: Yes Status: Acute Qualifiers: Nicotine product type: cigarettes Substance use status: in withdrawal Qualified Code(s): F17.213 - Nicotine dependence, cigarettes, with withdrawal - Initial Treatment Plan Initial Treatment Plan: Psychoeducation provided. Detox in progress. Observation.
[2017-05-02 10:13] LABS: ALBUMIN 3.8 g/dl (3.4-5.0); ALK PHOS 75 U/L (45-117); ANION GAP 8 (8-16); BILIRUBIN,TOTAL 0.9 mg/dL (0.2-1.0); BLOOD UREA NITROGEN 11 mg/dL (7-18); CALCIUM 8.9 mg/dL (8.5-10.1); CO2 28 mmol/L (21-32); CREATININE 0.9 mg/dL (0.7-1.3); GLUCOSE,RANDOM 83 mg/dL (74-106); SGOT/AST 11 U/L (15-37); SGPT/ALT 30 U/L (12-78); TOT PROT 7.2 g/dl (6.4-8.2)
--- NOTE | 2017-05-02 11:44 | PN ---
BHS COWS - Scale Resting Pulse: 1= CO 81-100 Sweatin= Chills/Flushing Restless Observation: 1= Difficult to Sit Still Pupil Size: 0= Normal to Room Light Bone or Joint Aches: 1= Mild Discomfort Runny Nose/ Eye Tearin= None GI Upset > 30mins: 1= Stomach Cramp Tremor Observation of Outstretched Hands: 2= Slight Tremor Visible Yawning Observation: 1= 1-2x During Session Anxiety or Irritability: 2=Irritable/Anxious Goose Flesh Skin: 3=Piloerection COWS Score: 13 BHS Progress Note (SOAP) Subjective: Nausea, Constipation, Stomach Cramping, H/A. Objective: PT. A & O X 3, OBSERVED AMBULATING ON UNIT. NO ACUTE DISTRESS. 05/02/17 11:45 Vital Signs Temperature 97.8 F 05/02/17 09:18 Pulse Rate 94 H 05/02/17 09:18 Respiratory Rate 20 05/02/17 09:18 Blood Pressure 113/82 05/02/17 09:18 O2 Sat by Pulse Oximetry (%) Laboratory Tests 05/01/17 05/02/17 05/02/17 21:50 07:30 07:30 WBC 12.8 H D RBC 4.80 Hgb 15.0 Hct 44.8 MCV 93.3 MCH 31.2 MCHC 33.4 RDW 13.0 Plt Count 284 D MPV 7.9 D Sodium 135 L Potassium 3.6 Chloride 99 Carbon Dioxide 28 Anion Gap 8 BUN 11 Creatinine 0.9 Creat Clearance w eGFR > 60 Random Glucose 83 Calcium 8.9 Total Bilirubin 0.9 D AST 11 L ALT 30 D Alkaline Phosphatase 75 Total Protein 7.2 Albumin 3.8 Urine Color Danelle Urine Appearance Slcloudy Urine pH 5.0 Ur Specific [place] 1.036 H Urine Protein 2+ H Urine Glucose (UA) Negative Urine Ketones 2+ H Urine Blood 1+ H Urine Nitrite Negative Urine Bilirubin Negative Urine Urobilinogen Negative Urine WBC (Auto) 8 Urine RBC (Auto) 6 Ur Epithelial Cells Few Urine Mucus Many RPR Titer HIV 1&2 Antibody Screen HIV P24 Antigen 05/02/17 05/02/17 07:30 08:00 WBC RBC Hgb Hct MCV MCH MCHC RDW Plt Count MPV Sodium Potassium Chloride Carbon Dioxide Anion Gap BUN Creatinine Creat Clearance w eGFR Random Glucose Calcium Total Bilirubin AST ALT Alkaline Phosphatase Total Protein Albumin Urine Color Urine Appearance Urine pH Ur Specific [place] Urine Protein Urine Glucose (UA) Urine Ketones Urine Blood Urine Nitrite Urine Bilirubin Urine Urobilinogen Urine WBC (Auto) Urine RBC (Auto) Ur Epithelial Cells Urine Mucus RPR Titer Nonreactive HIV 1&2 Antibody Screen Negative HIV P24 Antigen Negative LABS NOTED. Assessment: 05/02/17 11:45 WITHDRAWAL SYMPTOMS. LEUKOCYTOSIS. 05/02/17 11:46 Plan: CONTINUE DETOX. REPEAT CBC (05/04/2017) FOR ELEVATED WBC LEVEL, REPEAT UA FOR ADMISSION ABNORMALITIES. INCREASE DAILY PO FLUID INTAKE. PRN MOM FOR CONSTIPATION.
[2017-05-02] MEDS ORDERED: FLU VACCINE QUAD 60 MCG/0.5 ML (MDV 17-18) IM ONE (12:00)
--- NOTE | 2017-05-02 13:12 | EKG ---
Test Reason : Blood Pressure : / mmHG Vent. Rate : 059 BPM Atrial Rate : 059 BPM P-R Int : 122 ms QRS Dur : 082 ms QT Int : 436 ms P-R-T Axes : 065 068 068 degrees QTc Int : 431 ms SINUS BRADYCARDIA WITH MARKED SINUS ARRHYTHMIA OTHERWISE NORMAL ECG WHEN COMPARED WITH ECG OF 03-JAN-2017 13:35, NO SIGNIFICANT CHANGE WAS FOUND Confirmed by VERNELL CENTENO MD ([id number]) on 05/02/2017 1:12:17 PM Referred By: Confirmed By:VERNELL CENTENO MD
[2017-05-02 18:21] LABS: URINE APPEARANCE SLCLOUDY; URINE BILIRUBIN NEGATIVE (NEGATIVE); URINE BLOOD 1+ (NEGATIVE); URINE COLOR YELLOW; URINE GLUCOSE (UA) NEGATIVE (NEGATIVE); URINE KETONE NEGATIVE (NEGATIVE); URINE NITRITE NEGATIVE (NEGATIVE); URINE PROTEIN NEGATIVE (NEGATIVE); URINE UROBILINOGEN NEGATIVE mg/dL (0.2-1.0)
[2017-05-02 20:07] LABS: URINE LEUK ESTERASE 1+ (NEGATIVE)
[2017-05-02 21:36] LABS: EPI CELLS RARE /HPF (FEW); GRANULAR CASTS 3 /lpf; URINE HYALINE CAST 8 /lpf; URINE MUCUS MANY
[2017-05-02] MEDS: THIAMINE HCL 100 MG TABLET (FP) PO SCH (22:15)
[2017-05-03] MEDS ORDERED: METHADONE HCL 5 MG TABLET (FOR DETOX USE ONLY) PO ONE (10:00)
[2017-05-03] MEDS: diazePAM 5 MG TABLET PO PRN ×3 (10:18→22:22)
[2017-05-03] MEDS: RANITIDINE HCL 150 MG TABLET (FP) PO SCH ×2 (10:18→22:22)
[2017-05-03] MEDS: PRENATAL VITAMINS W/ FOLIC ACID TABLET (FP) PO SCH (10:18)
[2017-05-03] MEDS: NICOTINE 21 MG/24 HOURS TOPICAL PATCH TD SCH (10:19)
--- NOTE | 2017-05-03 12:07 | PN ---
BHS COWS - Scale Resting Pulse: 1= NE 81-100 Sweatin= Chills/Flushing Restless Observation: 1= Difficult to Sit Still Pupil Size: 0= Normal to Room Light Bone or Joint Aches: 2= Severe Diffuse Aches Runny Nose/ Eye Tearin= None GI Upset > 30mins: 1= Stomach Cramp Tremor Observation of Outstretched Hands: 2= Slight Tremor Visible Yawning Observation: 0= None Anxiety or Irritability: 2=Irritable/Anxious Goose Flesh Skin: 3=Piloerection COWS Score: 13 BHS Progress Note (SOAP) Subjective: Tremors, Body Aches, Constipation. Objective: PT. A & O X 3, OBSERVED AMBULATING ON UNIT. NO ACUTE DISTRESS. PATIENT DENIES ANY UNUSUAL URINARY SYMPTOMS (BURNING, FREQUENCY, PAIN, URGENCY). 05/03/17 12:04 Vital Signs Temperature 96.9 F L 05/03/17 09:20 Pulse Rate 92 H 05/03/17 09:20 Respiratory Rate 16 05/03/17 09:20 Blood Pressure 112/76 05/03/17 09:20 O2 Sat by Pulse Oximetry (%) Laboratory Tests 05/01/17 05/02/17 05/02/17 21:50 07:30 07:30 WBC 12.8 H D RBC 4.80 Hgb 15.0 Hct 44.8 MCV 93.3 MCH 31.2 MCHC 33.4 RDW 13.0 Plt Count 284 D MPV 7.9 D Sodium Potassium Chloride Carbon Dioxide Anion Gap BUN Creatinine Creat Clearance w eGFR Random Glucose Calcium Total Bilirubin AST ALT Alkaline Phosphatase Total Protein Albumin Urine Color Danelle Urine Appearance Slcloudy Urine pH 5.0 Ur Specific [place] 1.036 H Urine Protein 2+ H Urine Glucose (UA) Negative Urine Ketones 2+ H Urine Blood 1+ H Urine Nitrite Negative Urine Bilirubin Negative Urine Urobilinogen Negative Ur Leukocyte Esterase Negative Urine WBC (Auto) 8 Urine RBC (Auto) 6 Ur Epithelial Cells Few Hyaline Casts Granular Casts Urine Mucus Many RPR Titer Hepatitis C Antibody <0.1 HIV 1&2 Antibody Screen HIV P24 Antigen 05/02/17 05/02/17 05/02/17 07:30 07:30 08:00 WBC RBC Hgb Hct MCV MCH MCHC RDW Plt Count MPV Sodium 135 L Potassium 3.6 Chloride 99 Carbon Dioxide 28 Anion Gap 8 BUN 11 Creatinine 0.9 Creat Clearance w eGFR > 60 Random Glucose 83 Calcium 8.9 Total Bilirubin 0.9 D AST 11 L ALT 30 D Alkaline Phosphatase 75 Total Protein 7.2 Albumin 3.8 Urine Color Urine Appearance Urine pH Ur Specific [place] Urine Protein Urine Glucose (UA) Urine Ketones Urine Blood Urine Nitrite Urine Bilirubin Urine Urobilinogen Ur Leukocyte Esterase Urine WBC (Auto) Urine RBC (Auto) Ur Epithelial Cells Hyaline Casts Granular Casts Urine Mucus RPR Titer Nonreactive Hepatitis C Antibody HIV 1&2 Antibody Screen Negative HIV P24 Antigen Negative 05/02/17 15:50 WBC RBC Hgb Hct MCV MCH MCHC RDW Plt Count MPV Sodium Potassium Chloride Carbon Dioxide Anion Gap BUN Creatinine Creat Clearance w eGFR Random Glucose Calcium Total Bilirubin AST ALT Alkaline Phosphatase Total Protein Albumin Urine Color Yellow Urine Appearance Slcloudy Urine pH 5.0 Ur Specific [place] 1.029 Urine Protein Negative Urine Glucose (UA) Negative Urine Ketones Negative Urine Blood 1+ H Urine Nitrite Negative Urine Bilirubin Negative Urine Urobilinogen Negative Ur Leukocyte Esterase Negative Urine WBC (Auto) 25 Urine RBC (Auto) 2 Ur Epithelial Cells Rare Hyaline Casts 8 Granular Casts 3 Urine Mucus Many RPR Titer Hepatitis C Antibody HIV 1&2 Antibody Screen HIV P24 Antigen LABS NOTED. 05/03/17 16:20 Assessment: 05/03/17 12:04 WITHDRAWAL SYMPTOMS. Plan: CONTINUE DETOX. INCREASE DAILY PO FLUID INTAKE.
[2017-05-03] MEDS: THIAMINE HCL 100 MG TABLET (FP) PO SCH (22:22)
[2017-05-03] MEDS: ACETAMINOPHEN 325 MG TABLET (FP) PO PRN (22:22)
[2017-05-04] MEDS ORDERED: METHADONE HCL 5 MG TABLET (FOR DETOX USE ONLY) PO ONE (10:00)
[2017-05-04] MEDS ORDERED: METHADONE HCL 10 MG TABLET (FOR DETOX USE ONLY) PO ONE (10:00)
[2017-05-04] MEDS: NICOTINE 21 MG/24 HOURS TOPICAL PATCH TD SCH (10:06)
[2017-05-04] MEDS: diazePAM 5 MG TABLET PO PRN ×2 (10:06→15:29)
[2017-05-04] MEDS: RANITIDINE HCL 150 MG TABLET (FP) PO SCH ×2 (10:06→22:26)
[2017-05-04] MEDS: PRENATAL VITAMINS W/ FOLIC ACID TABLET (FP) PO SCH (10:06)
[2017-05-04 10:14] LABS: BASO % 0.9 % (0-2.0); EOS % 4.5 % (0-4.5); HEMOGLOBIN 12.6 GM/dL (11.7-16.9); LYMPH % 47.6 % (8-40); MCH 31.4 pg (25.7-33.7); MCHC 33.2 g/dl (32.0-35.9); MEAN CELL VOLUME 94.8 fl (80-96); MONO % 9.9 % (3.8-10.2); NEUT % 37.1 % (42.8-82.8); PLATELET COUNT 216 K/MM3 (134-434); RBC 4.01 M/mm3 (4.00-5.60); RDW 12.8 % (11.9-15.9); WHITE BLOOD COUNT 8.9 K/mm3 (4.0-10.0)
[2017-05-04] MEDS: ACETAMINOPHEN 325 MG TABLET (FP) PO PRN (11:47)
--- NOTE | 2017-05-04 14:52 | PN ---
BHS Progress Note (SOAP) Subjective: Sweating, Interrupted Sleep. Objective: PT. A & O X 3, OBSERVED AMBULATING ON UNIT. NO ACUTE DISTRESS. 05/04/17 14:50 Vital Signs Temperature 97.3 F L 05/04/17 13:53 Pulse Rate 98 H 05/04/17 13:53 Respiratory Rate 18 05/04/17 13:53 Blood Pressure 111/71 05/04/17 13:53 O2 Sat by Pulse Oximetry (%) Laboratory Tests 05/01/17 05/02/17 05/02/17 21:50 07:30 07:30 WBC 12.8 H D RBC 4.80 Hgb 15.0 Hct 44.8 MCV 93.3 MCH 31.2 MCHC 33.4 RDW 13.0 Plt Count 284 D MPV 7.9 D Neutrophils % Lymphocytes % Monocytes % Eosinophils % Basophils % Sodium Potassium Chloride Carbon Dioxide Anion Gap BUN Creatinine Creat Clearance w eGFR Random Glucose Calcium Total Bilirubin AST ALT Alkaline Phosphatase Total Protein Albumin Urine Color Danelle Urine Appearance Slcloudy Urine pH 5.0 Ur Specific [place] 1.036 H Urine Protein 2+ H Urine Glucose (UA) Negative Urine Ketones 2+ H Urine Blood 1+ H Urine Nitrite Negative Urine Bilirubin Negative Urine Urobilinogen Negative Ur Leukocyte Esterase Negative Urine WBC (Auto) 8 Urine RBC (Auto) 6 Ur Epithelial Cells Few Hyaline Casts Granular Casts Urine Mucus Many RPR Titer Hepatitis C Antibody <0.1 HIV 1&2 Antibody Screen HIV P24 Antigen 05/02/17 05/02/17 05/02/17 07:30 07:30 08:00 WBC RBC Hgb Hct MCV MCH MCHC RDW Plt Count MPV Neutrophils % Lymphocytes % Monocytes % Eosinophils % Basophils % Sodium 135 L Potassium 3.6 Chloride 99 Carbon Dioxide 28 Anion Gap 8 BUN 11 Creatinine 0.9 Creat Clearance w eGFR > 60 Random Glucose 83 Calcium 8.9 Total Bilirubin 0.9 D AST 11 L ALT 30 D Alkaline Phosphatase 75 Total Protein 7.2 Albumin 3.8 Urine Color Urine Appearance Urine pH Ur Specific [place] Urine Protein Urine Glucose (UA) Urine Ketones Urine Blood Urine Nitrite Urine Bilirubin Urine Urobilinogen Ur Leukocyte Esterase Urine WBC (Auto) Urine RBC (Auto) Ur Epithelial Cells Hyaline Casts Granular Casts Urine Mucus RPR Titer Nonreactive Hepatitis C Antibody HIV 1&2 Antibody Screen Negative HIV P24 Antigen Negative 05/02/17 05/04/17 15:50 08:00 WBC 8.9 D RBC 4.01 Hgb 12.6 D Hct 38.0 D MCV 94.8 MCH 31.4 MCHC 33.2 RDW 12.8 Plt Count 216 D MPV 8.0 Neutrophils % 37.1 L Lymphocytes % 47.6 H Monocytes % 9.9 Eosinophils % 4.5 Basophils % 0.9 Sodium Potassium Chloride Carbon Dioxide Anion Gap BUN Creatinine Creat Clearance w eGFR Random Glucose Calcium Total Bilirubin AST ALT Alkaline Phosphatase Total Protein Albumin Urine Color Yellow Urine Appearance Slcloudy Urine pH 5.0 Ur Specific [place] 1.029 Urine Protein Negative Urine Glucose (UA) Negative Urine Ketones Negative Urine Blood 1+ H Urine Nitrite Negative Urine Bilirubin Negative Urine Urobilinogen Negative Ur Leukocyte Esterase Negative Urine WBC (Auto) 25 Urine RBC (Auto) 2 Ur Epithelial Cells Rare Hyaline Casts 8 Granular Casts 3 Urine Mucus Many RPR Titer Hepatitis C Antibody HIV 1&2 Antibody Screen HIV P24 Antigen LABS NOTED. RESULTS OF REPEAT CBC NOTED. 05/04/17 14:52 Assessment: 05/04/17 14:50 WITHDRAWAL SYMPTOMS. Plan: CONTINUE DETOX. INCREASE DAILY PO FLUID INTAKE.
[2017-05-04] MEDS: THIAMINE HCL 100 MG TABLET (FP) PO SCH (22:26)
[2017-05-05] MEDS ORDERED: METHADONE HCL 5 MG TABLET (FOR DETOX USE ONLY) PO ONE (06:00)
[2017-05-05 06:21] VITALS: BP 106/60; PULSE 88; TEMP 97
[2017-05-05] MEDS: PRENATAL VITAMINS W/ FOLIC ACID TABLET (FP) PO SCH (09:03)
[2017-05-05] MEDS: RANITIDINE HCL 150 MG TABLET (FP) PO SCH (09:03)
[2017-05-05] MEDS: NICOTINE 21 MG/24 HOURS TOPICAL PATCH TD SCH (09:03)
[2017-05-05] MEDS ORDERED: METHADONE HCL 10 MG TABLET (FOR DETOX USE ONLY) PO ONE (10:00)
--- NOTE | 2017-05-05 17:18 | DS ---
[facility] Detox Discharge Summary Admission Date: 05/01/17 Discharge Date: 05/05/17 - History Present History: Opioid Dependence Pertinent Past History: GERD - Physical Exam Results Vital Signs: Vital Signs Temperature 97.0 F L 05/05/17 06:21 Pulse Rate 88 05/05/17 06:21 Respiratory Rate 18 05/05/17 06:21 Blood Pressure 106/60 05/05/17 06:21 O2 Sat by Pulse Oximetry (%) Pertinent Admission Physical Exam Findings: Withdrawal symptoms Laboratory Tests 05/01/17 05/02/17 05/02/17 21:50 07:30 07:30 WBC 12.8 H D RBC 4.80 Hgb 15.0 Hct 44.8 MCV 93.3 MCH 31.2 MCHC 33.4 RDW 13.0 Plt Count 284 D MPV 7.9 D Neutrophils % Lymphocytes % Monocytes % Eosinophils % Basophils % Sodium Potassium Chloride Carbon Dioxide Anion Gap BUN Creatinine Creat Clearance w eGFR Random Glucose Calcium Total Bilirubin AST ALT Alkaline Phosphatase Total Protein Albumin Urine Color Danelle Urine Appearance Slcloudy Urine pH 5.0 Ur Specific [place] 1.036 H Urine Protein 2+ H Urine Glucose (UA) Negative Urine Ketones 2+ H Urine Blood 1+ H Urine Nitrite Negative Urine Bilirubin Negative Urine Urobilinogen Negative Ur Leukocyte Esterase Negative Urine WBC (Auto) 8 Urine RBC (Auto) 6 Ur Epithelial Cells Few Hyaline Casts Granular Casts Urine Mucus Many RPR Titer Hepatitis C Antibody <0.1 HIV 1&2 Antibody Screen HIV P24 Antigen 05/02/17 05/02/17 05/02/17 07:30 07:30 08:00 WBC RBC Hgb Hct MCV MCH MCHC RDW Plt Count MPV Neutrophils % Lymphocytes % Monocytes % Eosinophils % Basophils % Sodium 135 L Potassium 3.6 Chloride 99 Carbon Dioxide 28 Anion Gap 8 BUN 11 Creatinine 0.9 Creat Clearance w eGFR > 60 Random Glucose 83 Calcium 8.9 Total Bilirubin 0.9 D AST 11 L ALT 30 D Alkaline Phosphatase 75 Total Protein 7.2 Albumin 3.8 Urine Color Urine Appearance Urine pH Ur Specific [place] Urine Protein Urine Glucose (UA) Urine Ketones Urine Blood Urine Nitrite Urine Bilirubin Urine Urobilinogen Ur Leukocyte Esterase Urine WBC (Auto) Urine RBC (Auto) Ur Epithelial Cells Hyaline Casts Granular Casts Urine Mucus RPR Titer Nonreactive Hepatitis C Antibody HIV 1&2 Antibody Screen Negative HIV P24 Antigen Negative 05/02/17 05/04/17 15:50 08:00 WBC 8.9 D RBC 4.01 Hgb 12.6 D Hct 38.0 D MCV 94.8 MCH 31.4 MCHC 33.2 RDW 12.8 Plt Count 216 D MPV 8.0 Neutrophils % 37.1 L Lymphocytes % 47.6 H Monocytes % 9.9 Eosinophils % 4.5 Basophils % 0.9 Sodium Potassium Chloride Carbon Dioxide Anion Gap BUN Creatinine Creat Clearance w eGFR Random Glucose Calcium Total Bilirubin AST ALT Alkaline Phosphatase Total Protein Albumin Urine Color Yellow Urine Appearance Slcloudy Urine pH 5.0 Ur Specific [place] 1.029 Urine Protein Negative Urine Glucose (UA) Negative Urine Ketones Negative Urine Blood 1+ H Urine Nitrite Negative Urine Bilirubin Negative Urine Urobilinogen Negative Ur Leukocyte Esterase Negative Urine WBC (Auto) 25 Urine RBC (Auto) 2 Ur Epithelial Cells Rare Hyaline Casts 8 Granular Casts 3 Urine Mucus Many RPR Titer Hepatitis C Antibody HIV 1&2 Antibody Screen HIV P24 Antigen Labs noted (abnormal UA): encouraged to drink lots of water, F/U with PCP for monitoring - Treatment Hospital Course: Detox Protocol Followed, Detoxed Safely, Responded well, Discharged Condition Good - Medication Discharge Medications: Ambulatory Orders NK [No Known Home Medication] 05/01/17 - Diagnosis (1) Nicotine dependence Status: Chronic Qualifiers: Nicotine product type: cigarettes Substance use status: in withdrawal Qualified Code(s): F17.213 - Nicotine dependence, cigarettes, with withdrawal (2) Opioid dependence with withdrawal Status: Acute (3) GERD (gastroesophageal reflux disease) Status: Chronic Qualifiers: Esophagitis presence: without esophagitis Qualified Code(s): K21.9 - Gastro -esophageal reflux disease without esophagitis (4) Depression (emotion) Status: Chronic Qualifiers: Depression Type: dysthymia Qualified Code(s): F34.1 - Dysthymic disorder - AMA Did Patient Leave Against Medical Advice: No (F/U with PCP within 1 week)
[2017-05-06] MEDS ORDERED: METHADONE HCL 5 MG TABLET (FOR DETOX USE ONLY) PO ONE (06:00)
== END 2017-05-05 09:06 | disposition home or self-care (01) | DRG 897 ==
LOC: YASAS 15:03 → Y3N 18:42
PROVIDERS: ADMIT Internal Medicine; ATTEND Internal Medicine
PROC: HZ2ZZZZ Detoxification Services for Substance Abuse Treatment (ICD-10-PCS; principal; 2017-05-01)
DX: F11.23 Opioid dependence with withdrawal (principal); F12.20 Cannabis dependence, uncomplicated; F17.213 Nicotine dependence, cigarettes, with withdrawal; F34.1 Dysthymic disorder; K21.9 Gastro-esophageal reflux disease without esophagitis; R82.90 Unspecified abnormal findings in urine; R00.0 Tachycardia, unspecified; Z87.891 Personal history of nicotine dependence
CPT/HCPCS: 36415; 80053; 81003; 81015; 85025; 85027; 86593; 86803; 87389; 90688; 93005; 93010; G0008